=== PATIENT | female | born 1970 | race Caucasian/White ===

== ENCOUNTER 2021-03-15 08:38 | Outpatient (CLI) | payer OTHER, SELFPAY ==
--- NOTE | ~2021-03-15 | MM_ITS ---
EXAMINATION: MM screening [facility] BI w angelina HISTORY: Screening mammogram TECHNIQUE: Craniocaudal and mediolateral oblique 3-D tomosynthesis images were obtained and synthetic 2-D images were generated. CAD analysis was submitted and interpreted. COMPARISON: 05/18/2017, 11/05/2014 BREAST PARENCHYMAL COMPOSITION: There are scattered areas of fibroglandular density. FINDINGS: There is no evidence of suspicious mass, calcification, or architectural distortion to sugg est malignancy in either breast. There has been no suspicious interval change. IMPRESSION: 1. No mammographic evidence of malignancy. 2. Recommend routine screening mammography in one year. BI-RADS Category 1: Negative Reviewed, dictated and finalized at location A. CARPENTER
--- NOTE | ~2021-03-15 | XR_ITS ---
EXAMINATION: XR foot RT min 3V DATE: 03/15/2021 08:58 INDICATION: Right foot pain TECHNIQUE: Dorsoplantar, lateral, and 2 oblique views of the right foot were obtained. COMPARISON: None. FINDINGS: Bone alignment is normal. There is no fracture. There is mild osteoarthritis at the first m etatarsophalangeal joint as well as several interphalangeal joints. Posterior and plantar calcaneal e nthesophytes are noted. IMPRESSION: 1. No acute osseous abnormality. Reviewed, dictated and finalized at location A. LY CONSUMER SCIENTIST
== END 2021-03-15 08:39 | disposition home or self-care (01) ==
PROVIDERS: PCP Family Medicine; Visit Provider Physician Assistant
DX: Z12.31 Encounter for screening mammogram for malignant neoplasm of breast (principal); M79.673 Pain in unspecified foot
CPT/HCPCS: 73630; 77063; 77067

== ENCOUNTER 2021-12-05 08:23 | Outpatient (CLI) | payer BC, SELFPAY ==
--- NOTE | ~2021-12-05 | XR_ITS ---
XR lumbar spine min 4V 12/05/2021 08:56 Indication: Low back pain Procedure: 5 views lumbar spine Comparison: No prior studies for comparison. Findings: There is disc narrowing at L5-S1 with grade 1 spondylolisthesis secondary to spondylolysis. There is degenerative disc disease and disc narrowing at T12-L1 as well. There is atherosclerosis of the aorta. Sacral foramen are symmetric. Impression: 1: Mild-moderate lumbar spondylosis with grade 1 spondylolisthesis at L5-S1. Reviewed, dictated and finalized at location A. Impression: 1: Mild-moderate lumbar spondylosis with grade 1 spondylolisthesis at L5-S1.
--- NOTE | ~2021-12-05 | XR_ITS ---
XR thoracic spine 2V DATE: 12/05/2021 08:55 INDICATION: Back pain TECHNIQUE: AP, lateral, swimmer views COMPARISON: None FINDINGS: There is osteopenia. There is mild to moderate degenerative spurring of the thoracic spine. No fracture or dislocation or bone destruction. The thoracic pedicles are intact. No paraspinal soft tissue thickening. IMPRESSION: Osteopenia Mild to moderate degenerative spurring Reviewed, dictated and finalized at location B.
== END 2021-12-05 08:24 | disposition home or self-care (01) ==
PROVIDERS: PCP Hospitalist; Visit Provider Hospitalist
DX: M47.817 Spondylosis without myelopathy or radiculopathy, lumbosacral region (principal); M47.815 Spondylosis without myelopathy or radiculopathy, thoracolumbar region; I70.0 Atherosclerosis of aorta
CPT/HCPCS: 72070; 72110

== ENCOUNTER 2022-02-03 12:56 | Emergency (ER) | payer BC, SELFPAY ==
--- NOTE | ~2022-02-03 | XR_ITS ---
EXAMINATION: XR chest 2V DATE: 02/03/2022 13:48 INDICATION: Chest congestion. TECHNIQUE: Frontal and lateral views of the chest were obtained. COMPARISON: Thoracic spine radiographs 12/05/2021 FINDINGS: There is mild atelectasis in lingula. No pleural effusion or pneumothorax. The heart size i s normal. There is mild chronic anterior wedging of multiple vertebral bodies. IMPRESSION: 1. Mild atelectasis in lingula. Reviewed, dictated and finalized at location B.
[2022-02-03 13:12] VITALS: BP 126/80; PULSE 85; RESP 16; TEMP 36.8; O2SAT 98
--- NOTE | 2022-02-03 13:22 | ED.URI ---
HPI - URI/Sore Throat General Chief Complaint: Upper Respiratory Infection Stated Complaint: uri Time Seen by Provider: 02/03/22 13:22 Source: patient and RN notes reviewed Mode of arrival: ambulatory Limitations: no limitations History of Present Illness HPI Narrative: 51-year-old female presents to the [facility] with complaints of 1 week of feeling not well. Started last Wednesday with a sore throat for 2 days. Cliff fine on Wednesday, has been increasing with sinus drainage, headache, fatigue and fevers. Reports taking an at home COVID test yesterday which she reports is negative. Patient is a smoker. Denies any significant past medical or surgical history. Orts a productive cough in the morning. Related Data Home Medications Medication Instructions Recorded Confirmed atorvastatin 40 mg tablet 40 mg DIRECTED 02/03/22 02/03/22 bupropion HCl 100 mg tablet 100 mg PO DIRECTED 02/03/22 02/03/22 hydrochlorothiazide 25 mg tablet 25 mg DIRECTED 02/03/22 02/03/22 losartan 50 mg tablet 50 mg DIRECTED 02/03/22 02/03/22 Allergies Allergy/AdvReac Type Severity Reaction Status Date / Time No Known Allergies Allergy Verified 02/03/22 13:56 Review of Systems Review of Systems: All systems reviewed & are unremarkable except as noted in HPI and below Constitutional: Constitutional: Reports as per HPI, Denies chills, Reports fatigue and Reports fever(s) Eyes: Eyes: Reports no additional eye complaints ENT: Reports as per HPI, Reports nasal congestion and Reports sore throat Cardiovascular: Cardiovascular: Reports no additional cardiovascular complaints Respiratory: Respiratory: Reports as per HPI, Reports chest congestion and Reports cough Gastrointestinal: Gastrointestinal: Reports no additional gastrointestinal complaints Musculoskeletal: Musculoskeletal: Reports no additional musculoskeletal complaints Integumentary/Breasts: Skin/Breast: Reports system reviewed and no additional complaints, except as docu Neurologic: Reports system reviewed and no additional complaints, except as documented Psychiatric: Psychiatric: Reports no additional psychiatric complaints Allergic/Immunologic: Allergic/Immunologic: Reports no additional allergic/immunologic complaints PMFSH Past Medical History Medical History (Updated 02/03/22 @ 19:52 by Rachele Larkin APRN) Anxiety and depression High cholesterol Hypertension Social History Social History (Updated 02/03/22 @ 19:52 by Rachele Larkin APRN) Smoking status: Current every day smoker Tobacco type: cigarettes Gender identity (if verbalized by the patient): Female Comments At the time of my signature, I reviewed and agree with the nursing past medical, surgical, social, and family history. There is no relevant family history pertinent to the patient complaint. Exam Const: General: healthy appearing, no acute distress, alert and well nourished Nutritional Appearance: well nourished and obese Orientation/consciousness: patient oriented x3 Limitations: no limitations HENMT: Head: normal to inspection Ears: external ears normal, TM's normal bilaterally and EAC's normal Face/Nose/Sinus: Normal external nose present Face and sinus: normal facial exam and sinuses nontender Throat: posterior oropharynx normal and uvula midline Eyes: General: appearance normal, both eyes and all related structures Conjunctivae: conjunctivae normal Pupils: Equal, round and reactive pupils present Neck: Neck: normal visual inspection, no lymphadenopathy and no meningeal signs Chest: Chest palpation & inspection: normal inspection of the chest Resp: Effort & Inspection: normal respiratory effort and no use of accessory muscles Auscultation: clear to auscultation bilaterally, no crackles, no rales, no rhonchi, no wheezes and diminished lung sounds on the left in the lower lung broussard Cardio: Rate: regular rate Rhythm: regular rhythm GI: GI Palp: Yes Soft to p
== END 2022-02-03 14:20 | disposition home or self-care (01) ==
PROVIDERS: Emergency Provider Nurse Practitioner
DX: J98.11 Atelectasis (principal); J40 Bronchitis, not specified as acute or chronic; Z20.822 Contact with and (suspected) exposure to COVID-19; F17.210 Nicotine dependence, cigarettes, uncomplicated; E78.00 Pure hypercholesterolemia, unspecified; I10 Essential (primary) hypertension; F41.9 Anxiety disorder, unspecified; F32.A Depression, unspecified
CPT/HCPCS: 71046; 87426; 87804; 99213; C9803; G0463

== ENCOUNTER 2022-04-08 14:51 | Emergency (ER) | payer BC, SELFPAY ==
--- NOTE | ~2022-04-08 | XR_ITS ---
XR chest 2V DATE: 04/08/2022 15:14 INDICATION: Back and chest pain, chest tightness, pressure TECHNIQUE: PA and lateral views COMPARISON: 01/2022 2 view chest FINDINGS: Again noted is discoid atelectasis or scarring, left lower lung. Minimal discoid atelectasi s or scarring in the right lower lung. Mild patchy infiltrate or atelectasis is suggested in the left lower lobe. Small mass in the left lower lobe is not excluded. Given the history of smoking, CT thor ax is recommended. Normal heart size. No hilar or mediastinal enlargement. No pleural effusion or pulmonary vascular congestion or pneumothorax. IMPRESSION: Mild discoid atelectasis or scarring in the lower lung zones and patchy left lower lobe i nfiltrate; small left lower lobe mass density is not excluded. CT thorax is recommended, particularly given the patient's smoking history Reviewed, dictated and finalized at location B. GE ACCOUNTS AUDIT CLERK IMPRESSION: Mild discoid atelectasis or scarring in the lower lung zones and pa tchy left lower lobe infiltrate; small left lower lobe mass density is not excl uded. CT thorax is recommended, particularly given the patient's smoking histor y
--- NOTE | 2022-04-08 14:57 | ECG_ITS ---
Measurements Intervals Blanding Rate: 65 P: 25 PA: 175 QRS: 4 QRSD: 92 T: 41 QT: 406 QTc: 423 Interpretive Statements SINUS RHYTHM NO PREVIOUS ECG AVAILABLE FOR COMPARISON Electronically Signed On 04-08-2022 15:19:41 MEDICAL DOCTOR by Josselyn Taveras M.D.
[2022-04-08 15:04] VITALS: BP 137/72; PULSE 77; RESP 16; TEMP 36.7; O2SAT 98
[2022-04-08 15:14] LABS: Basophils Percent Auto 0.8 % (0.2-1.2); Eosinophils Percent Auto 1.1 % (0-4.4); Hematocrit 48.2 % (37.0-47.0); Lymphocytes Absolute Auto 1.95 K/mm3 (0.9-3.2); Lymphocytes Percent Auto 52.3 % (18.3-44.2); Mean Corpuscular HGB Conc 33.2 g/dl (32-36); Mean Corpuscular Hemoglobin 30.9 pg (26-34); Mean Corpuscular Volume 93.2 fl (80-100); Mean Platelet Volume 9.7 fl (7.4-10.4); Monocytes Absolute Auto 0.5 K/mm3 (0.1-0.6); Monocytes Percent Auto 13.1 % (2.6-8.5); Neutrophils Absolute Auto 1.2 K/mm3 (1.3-6.7); Neutrophils Percent Auto 32.7 % (45.5-73.1); Platelet Count Result 199 k/mm3 (150-375); Red Blood Count 5.17 M/mm3 (4.2-5.4); Red Cell Distribution Width 12.7 % (11.5-14.5); White Blood Count 3.7 K/mm3 (4.5-10.0)
[2022-04-08 15:21] LABS: Alanine Aminotransferase 20 U/L (6-35); Albumin Level 4.2 g/dL (3.5-5.1); Alkaline Phosphatase 82 U/L (38-126); Anion Gap 5 mmol/L (8-16); Aspartate Amino Transferase 25 U/L (14-36); Bilirubin,Total 0.3 mg/dL (0.2-1.3); Blood Urea Nitrogen 12 mg/dL (7-17); Calcium 8.5 mg/dL (8.4-10.2); Carbon Dioxide 30 mmol/L (22-30); Chloride 106 mmol/L (98-107); Estimated CRCL calculation 95 ml/min; Estimated Glomerular Filt Rate > 60; Glucose 110 mg/dL (65-110); Lipase 70 U/L (23-300); Potassium 3.7 mmol/L (3.4-5.0); Sodium 141 mmol/L (137-145)
[2022-04-08 15:24] LABS: Prothrombin Time 12.9 Seconds (11.1-14.7)
[2022-04-08 15:25] LABS: Partial Thromboplastin Time 28.2 SECONDS (22.3-36.8)
[2022-04-08 15:32] LABS: Troponin I < 0.012 ng/mL (0.000-0.034)
--- NOTE | 2022-04-08 18:24 | PC.NURSE ---
Patient up to triage desk to notify staff that she was feeling better and no longer wanted to wait to be seen. The patient was encouraged to stay for further evaluation by MD but she declined. Patient encouraged to return to the ED with worsening sx.
== END 2022-04-08 18:24 | disposition left against medical advice (07) ==
PROVIDERS: Emergency Provider Emergency Medicine
DX: R07.9 Chest pain, unspecified (principal)
CPT/HCPCS: 36415; 71046; 80053; 83690; 84484; 85025; 85610; 85730; 93005; 99199

== ENCOUNTER 2022-08-21 00:28 | Day surgery (SDC) | payer OTHER, SELFPAY ==
[2022-08-12 13:29] VITALS: BMI 36.8
[2022-08-21 07:15] VITALS: BP 153/84; PULSE 74; RESP 18; TEMP 36.3; O2SAT 99; BMI 36.8
[2022-08-21] MEDS: LACTATED RINGERS 1,000 ML 150 ML IV CONT (07:28)
--- NOTE | 2022-08-21 07:51 | P.PNAN_ITS ---
Anes - Initial Pre Proc Eval Procedure: Operation Date: 08/21/22 08:15 Proposed Procedures p Colonoscopy - Estevan Mejia MD Date/Time: 08/21/22 07:51 Surgeon: Estevan Mejia MD Pre Op Diagnosis: neoplasm screening Patient Data Age: 52 Gender: F Height: 1.73 m Weight: 109.8 kg Last Vital Signs Temp 97.4 F L 08/21/22 07:15 Pulse 74 08/21/22 07:15 Resp 18 08/21/22 07:15 BP 153/84 H 08/21/22 07:15 Pulse Ox 99 08/21/22 07:15 O2 Del Method Room Air 08/21/22 07:15 Allergies Allergy/AdvReac Type Severity Reaction Status Date / Time No Known Allergies Allergy Verified 08/21/22 07:18 Home Medications Medication Instructions Recorded Confirmed Type bupropion HCl 100 mg tablet,12 hr 100 mg PO DAILY #90 ea 01/15/21 08/21/22 Rx sustained-release atorvastatin 40 mg tablet 40 mg PO DAILY #90 tabs 01/20/21 08/21/22 Rx hydrochlorothiazide 25 mg tablet 25 mg PO DAILY #90 tabs 01/20/21 08/21/22 Rx inhalational spacing device (Space #1 ea 02/03/22 08/21/22 Rx Chamber) Patient hx anesthesia problems: none Family hx anesthesia problems: none Results Review: All pre-operative results and documents have been reviewed as part of the pre- operative evaluation. [facility] Past Medical History Medical History (Updated 04/10/22 @ 08:09 by Chely Clay) Anxiety and depression Depression High cholesterol HTN (hypertension) with goal to be determined Hypertension Tobacco abuse counseling Family History Family History (System 04/10/22 @ 08:09 by Chely Clay) Mother Family history of diabetes mellitus in first degree relative Father Family history of lung cancer Grandparent Family history of lung cancer Family history of coronary artery disease Social History Social History (System 04/10/22 @ 08:09 by Chely Clay) Smoking packs per day: 2 Smoking cigarettes per day: 40.0 Years smoked: 34 Smoking pack-years: 68.00 Smoking status: Current every day smoker Tobacco type: cigarettes Second hand tobacco smoke exposure: No Alcohol intake: never Substance use: never Substance use type: does not use Living arrangements: with family Gender identity (if verbalized by the patient): Female Spiritual care concerns: No Anes - Eval Final PreProcedure Day of Procedure 08/21/22 07:51 Patient weight: obese Heart: regular rate and rhythm Lungs: clear to auscultation Airway: Mallampati scale class II Neurological: alert and oriented Last oral intake: >/= 8 hours ASA classification: III Emergent: no Anesthetic plan: proceed Anesthesia type and monitoring: general GIVS and standard monitoring Results Review: All pre-operative results and documents have been reviewed as part of the pre- operative evaluation. Informed Consent: The patient's anesthetic plan and its attendant risks and benefits were discussed with the patient/family/POA. Questions were solicited and answers provided to the satisfaction of the patient/family/POA.
--- NOTE | 2022-08-21 07:53 | PM.HPGS ---
History of Present Illness History of Present Illness Consent: Risks, benefits, and alternatives have been discussed and questions answered. Patient agrees to proceed with procedure. Chief complaint: neoplasm screening Narrative: Danisah Zavaleta is a 52 year old female here for first screening colonoscopy Review of Systems Constitutional: Constitutional: Denies headache(s) and Denies weakness Eyes: Eyes: Denies blurry vision ENT: Reports Normal hearing present, Denies headache(s) and Denies neck pain Cardiovascular: Cardiovascular: Denies chest pain and Denies dyspnea Respiratory: Respiratory: Denies dyspnea Gastrointestinal: Gastrointestinal: Reports no additional gastrointestinal complaints Genitourinary: Genitourinary: Denies dysuria Musculoskeletal: Musculoskeletal: Denies neck pain Integumentary/Breasts: Skin/Breast: Denies dry skin Neurologic: Reports Normal hearing present, Denies headache(s) and Denies weakness Psychiatric: Psychiatric: Denies anxiety Endocrine: Endocrine: Denies change in body appearance Hematologic/Lymphatic: Hematologic/Lymphatic: Denies easy bleeding Allergic/Immunologic: Allergic/Immunologic: Denies urticaria PMF Past Medical History Medical History (Updated 08/21/22 @ 07:53 by Estevan Mejia MD) Anxiety and depression Colon cancer screening Depression High cholesterol HTN (hypertension) with goal to be determined Hypertension Tobacco abuse counseling Family History Family History (System 04/10/22 @ 08:09 by Chely Clay) Mother Family history of diabetes mellitus in first degree relative Father Family history of lung cancer Grandparent Family history of lung cancer Family history of coronary artery disease Social History Social History (System 04/10/22 @ 08:09 by Chely Clay) Smoking packs per day: 2 Smoking cigarettes per day: 40.0 Years smoked: 34 Smoking pack-years: 68.00 Smoking status: Current every day smoker Tobacco type: cigarettes Second hand tobacco smoke exposure: No Alcohol intake: never Substance use: never Substance use type: does not use Living arrangements: with family Gender identity (if verbalized by the patient): Female Spiritual care concerns: No Meds Home Medications and Allergies Home Medications Medication Instructions Recorded Confirmed Type bupropion HCl 100 mg tablet,12 hr 100 mg PO DAILY #90 ea 01/15/21 08/21/22 Rx sustained-release atorvastatin 40 mg tablet 40 mg PO DAILY #90 tabs 01/20/21 08/21/22 Rx hydrochlorothiazide 25 mg tablet 25 mg PO DAILY #90 tabs 01/20/21 08/21/22 Rx inhalational spacing device (Space #1 ea 02/03/22 08/21/22 Rx Chamber) Allergies Allergy/AdvReac Type Severity Reaction Status Date / Time No Known Allergies Allergy Verified 08/21/22 07:18 Vital Signs Vital Signs - 24 hr 08/21/22 07:15 Temperature 97.4 F L Pulse Rate 74 Respiratory Rate 18 Blood Pressure 153/84 H Pulse Oximetry 99 Oxygen Delivery Room Air Exam Const: General: comfortable and no acute distress HENMT: Face/Nose/Sinus: Normal nares present Eyes: General: appearance normal, both eyes and all related structures Neck: Neck: no JVD Resp: Auscultation: clear to auscultation bilaterally Cardio: Rate: regular rate Rhythm: regular rhythm GI: Inspection: non-distended GI Palp: Yes Soft to palpation Skin: General skin exam: normal color Neuro: General: gait normal Speech: normal speech Extrem: General: normal to inspection Psych: Mental Status: mental status grossly normal Assessment and Plan Assessment and plan (1) Colon cancer screening: Code(s): Z12.11 - Encounter for screening for malignant neoplasm of colon Status: Acute Assessment and Plan: colonoscopy
[2022-08-21 08:16] VITALS: BP 124/76; PULSE 77; RESP 14; O2SAT 98
[2022-08-21 08:26] VITALS: BP 153/84; PULSE 74; RESP 18; O2SAT 99
[2022-08-21 08:36] VITALS: BP 103/99; PULSE 69; RESP 22; O2SAT 98
== END 2022-08-21 08:47 | disposition home or self-care (01) ==
PROVIDERS: Referring Provider Obstetrics & Gynecology; Visit Provider Internal Medicine Gastroenterology
PROC: 0DJD8ZZ Inspection of Lower Intestinal Tract, Via Natural or Artificial Opening Endoscopic (ICD-10-PCS; CPT 45378; principal; 2022-08-21 08:15)
DX: Z12.11 Encounter for screening for malignant neoplasm of colon (principal); D12.3 Benign neoplasm of transverse colon; K63.5 Polyp of colon; K64.8 Other hemorrhoids; K57.30 Diverticulosis of large intestine without perforation or abscess without bleeding; I10 Essential (primary) hypertension; E78.00 Pure hypercholesterolemia, unspecified; F41.8 Other specified anxiety disorders; F17.210 Nicotine dependence, cigarettes, uncomplicated; E66.9 Obesity, unspecified; Z68.36 Body mass index [BMI] 36.0-36.9, adult
CPT/HCPCS: 45385; 88305; J2704; J7120

== ENCOUNTER 2023-02-19 13:47 | Outpatient (CLI) | payer OTHER, SELFPAY ==
--- NOTE | ~2023-02-19 | MM_ITS ---
EXAMINATION: MM screening [facility] w [facility] HISTORY: Screening TECHNIQUE: Craniocaudal and mediolateral oblique 3-D tomosynthesis images were obtained and synthetic 2-D images were generated. CAD analysis was submitted and interpreted. COMPARISON: Comparison to multiple prior studies sequentially, with oldest reviewed study dated 10/19. BREAST PARENCHYMAL COMPOSITION: There are scattered areas of fibroglandular density. FINDINGS: There is no evidence of suspicious mass, calcification, or architectural distortion to sugg est malignancy in either breast. There has been no suspicious interval change. IMPRESSION: 1. No mammographic evidence of malignancy. 2. Recommend routine screening mammography in one year. BI-RADS Category 1: Negative Reviewed, dictated and finalized at location A.
== END 2023-02-19 13:48 | disposition home or self-care (01) ==
LOC: ANHIMG 13:48
PROVIDERS: Visit Provider Obstetrics & Gynecology
DX: Z12.31 Encounter for screening mammogram for malignant neoplasm of breast (principal)
CPT/HCPCS: 77063; 77067

== ENCOUNTER 2023-08-09 12:03 | Outpatient (CLI) | payer OTHER, SELFPAY ==
--- NOTE | ~2023-08-09 | US_ITS ---
US axilla 08/09/2023 12:59 Indication: Bilateral axillary swelling Procedure: High-resolution bilateral axillary ultrasound Comparison: No prior studies for comparison. Findings: Right axillary soft tissues are normal without discrete mass. There is a normal-appearing l ymph node of the left axilla with retention of fatty hilum. This lymph node measures 1.8 x 1.4 x 1 cm . No suspicious fluid collections in either axilla. Impression: 1: Unremarkable bilateral axillary ultrasound. Reviewed, dictated and finalized at location A. Impression: 1: Unremarkable bilateral axillary ultrasound.
== END 2023-08-09 12:04 | disposition home or self-care (01) ==
LOC: ANHIMG 12:05
PROVIDERS: Visit Provider Obstetrics & Gynecology
DX: R59.0 Localized enlarged lymph nodes (principal)
CPT/HCPCS: 76882